=== PATIENT | female | born 1970 | race Caucasian/White ===

== ENCOUNTER 2016-09-07 21:26 | Emergency (ER) | payer BC ==
[~2016-09-07] VITALS: Ht 172.7 cm; Wt 79.8 kg
[~2016-09-07 21:26] MED LIST changes: -ASPI81TA28 PO; -CETI10TA84 PO; -CHOLCAP5 PO; -CYAN1DRO PO; -IBUP-103 PO
[2016-09-07 21:34] VITALS: TEMP 36.5; Ht 172.7 cm; Wt 79.8 kg
[2016-09-07] MEDS ORDERED: OPTIRAY 320 IV PRN (22:00)
[2016-09-07] MEDS ORDERED: IBUP-103 PO (22:02)
[2016-09-07] MEDS ORDERED: CETI10TA84 PO (22:02)
[2016-09-07] MEDS ORDERED: ASPI81TA28 PO (22:02)
[2016-09-07] MEDS ORDERED: CHOLCAP5 PO (22:02)
[2016-09-07] MEDS ORDERED: CYAN1DRO PO (22:05)
--- NOTE | 2016-09-07 22:31 | DIAGNOSTIC IMAGING REPORT ---
CHEST CTA for PULMONARY ARTERIES CT DOSE: 291.25 mGy.cm HISTORY: Chest pain dyspnea TECHNIQUE: Multiaxial CT images of the chest were performed following the intravenous administration of contrast to evaluate the pulmonary arteries. Maximal intensity projection images were also obtained. COMPARISON STUDY: None. FINDINGS: Slight ectasia of the thoracic aorta. No evidence for aneurysm or dissection. Pulmonary arterial structures enhance appropriately. Lungs are considered clear. No significant hilar or mediastinal adenopathy. IMPRESSION: No evidence for pulmonary embolus. Lungs are clear Electronically signed by: Eric Asif M.D. 09/07/2016 10:29 PM Dictated Date/Time: 09/07/2016 10:27 PM
[2016-09-07 23:00] VITALS: BP 108/56; PULSE 71; O2SAT 96
--- NOTE | 2016-09-08 00:50 | EMERGENCY ROOM VISIT NOTE ---
History First contact with patient: 21:37 Chief Complaint: ABNORMAL LABS Stated Complaint: ABNORMAL LABS REFERRD BY History of Present Illness The patient is a 45 year old female who presents to the Emergency Room with complaints of chest burning and discomfort for the past 3 days currently 4 out of 10. Patient was sick this month with flulike illness that is now resolved. Patient went to the family care doctor today and had an elevated d-dimer and was sent in for further evaluation. She states she had a normal EKG. Her mother from a PE. Patient denies dyspnea, fever, chills, productive cough , abdominal pain, leg pain or swelling, back pain, radiating pain, headache, numbness, tingling. No recent travel. She does not smoke. No control. No rash. She has a family history of heart disease. Review of Systems See HPI for pertinent positives & negatives. A total of 10 systems reviewed and were otherwise negative. Past Medical/Surgical History None Social History Smoking Status: Never Smoker Smokeless Tobacco Use: No Alcohol Use: occasionally Drug Use: none Marital Status: Housing Status: lives with family Current/Historical Medications Scheduled Aspirin (Aspirin Ec), 81 MG PO DAILY Cholecalciferol (Vitamin D3), 5,000 INTER.UNIT PO DAILY Cyanocobalamin (Vitamin B12), 1 DOSE PO DAILY Scheduled PRN Cetirizine (Zyrtec), 10 MG PO DAILY PRN for Allergy Symptoms Ibuprofen Tab (Advil), 400-600 MG PO Q6H PRN for Pain or Fever Allergies Coded Allergies: No Known Allergies (Verified Allergy, Unknown, 09/28/04) Physical Exam Vital Signs Date Time Temp Pulse Resp B/P Pulse Ox O2 Delivery O2 Flow Rate FiO2 09/07/16 23:00 71 23 108/56 96 09/07/16 22:31 67 24 107/61 96 Room Air 09/07/16 22:10 76 09/07/16 21:34 36.5 70 16 115/65 97 Room Air Physical Exam VITALS: Vitals are noted on the nurse's note and reviewed by myself. Vital signs stable. GENERAL: Pleasant female, in no acute distress, nondiaphoretic, well-developed well-nourished. SKIN: The skin was without rashes, erythema, edema, or bruising. There is no tenting of the skin. Capillary reflex less than 2 seconds. HEAD: Normocephalic atraumatic. EARS: External auditory canals clear, tympanic membranes pearly edwards without erythema or effusion bilaterally. EYES: Pupils equal round and reactive to light and accommodation. Conjunctivae without injection, sclerae without icterus. Extraocular movements intact. NOSE: Patent, turbinates without inflammation or discharge. MOUTH: Mucous membranes moist. Pharynx without erythema or exudate. Uvula midline. Airway patent. Tongue does not deviate. NECK: Supple without nuchal rigidity. No lymphadenopathy. No thyromegaly. Cervical spine is nontender. No JVD. HEART: Regular rate and rhythm without murmurs gallops or rubs. Chest nontender to palpation LUNGS: Clear to auscultation bilaterally without wheezes, rales or rhonchi. No dullness to percussion. No retractions or accessory muscle use. ABDOMEN: Positive bowel sounds x 4. Normal tympanic percussion. Soft, nontender, without masses or organomegaly. Carlisle sign negative. No guarding or rebound tenderness. MUSCULOSKELETAL: No muscle atrophy, erythema, or edema noted. NEURO: Patient was alert and oriented to person place and time. Normal sensation to light and sharp touch. No focal neurological deficits. Medical Decision & Procedures Laboratory Results Test 09/07/16 22:00 Troponin I < 0.015 ng/ml (0-0.045) ED Course Prior records/ancillary studies reviewed. Triage Nursing notes reviewed. Additional history obtained from family. The patient's history was concerning for chest pain. Differential diagnosis: Etiologies such as cardiac ischemia, aortic dissection, pulmonary embolism, pneumonia, pneumothorax, musculoskeletal, infections, pericarditis, myocarditis , esophageal rupture, gastrointestinal, as well as others were entertained. Physical examination: As above. ER treatment provided: Patient was observed On reassessment the patient felt better. Diagnostic interpretation by me: The electrocardiogram was negative for pathologic change. Normal sinus, normal intervals, no acute ST-T wave changes. Impression normal sinus rhythm interpreted by myself The labs revealed 2 troponins 6 hours apart. Patient had blood work done outpatient today and had a creatinine 0.68 euthyroid and an elevated d-dimer Imaging studies: CHEST CTA for PULMONARY ARTERIES CT DOSE: 291.25 mGy.cm HISTORY: Chest pain dyspnea TECHNIQUE: Multiaxial CT images of the chest were performed following the intravenous administration of contrast to evaluate the pulmonary arteries. Maximal intensity projection images were also obtained. COMPARISON STUDY: None. FINDINGS: Slight ectasia of the thoracic aorta. No evidence for aneurysm or dissection. Pulmonary arterial structures enhance appropriately. Lungs are considered clear. No significant hilar or mediastinal adenopathy. IMPRESSION: No evidence for pulmonary embolus. Lungs are clear Electronically signed by: Eric Asif M.D. Exam and history seem consistent with chest pain that is unlikely to be cardiac in etiology. Symptoms have been ongoing for 3 days. She saw the family care doctor and was sent in for elevated d-dimer. CTA was negative. Repeat troponin was negative which was greater than 6 hours apart. Normal EKG. She is advised to rest, stay well-hydrated and to follow-up family care in a few days or here in the ER sooner for chest pain, difficulty breathing, worsening signs or symptoms or as needed. By the evaluation outlined above emergent etiologies such as cardiac ischemia, aortic dissection, pulmonary embolism, pneumonia, pneumothorax, infections, pericarditis, myocarditis, gastrointestinal, as well as others were deemed relatively unlikely. The pt informed about the findings as listed above. All questions were answered and pleased with the treatment. Return instructions were outlined and the patient was discharged in stable condition. Referral: The patient was referred back to primary care physician for follow-up in 2 to 3 days for a recheck of the current condition. Case reviewed with my attending Medical Decision As above Impression Primary Impression: Precordial chest pain Departure Information Dispostion Home / Self-Care Condition GOOD Referrals Tahir Manzo M.D. (PCP) Patient Instructions My [facility] Additional Instructions Ibuprofen(Motrin, Advil) may be used for fever or pain. Use 600mg every six hours as needed. Take with food. Avoid using more than 2400mg in a 24 hour period. Do not use 2400mg per day for more than three consecutive days without physician direction. Prolonged inappropriate use can lead to stomach upset or ulcers. (AND/OR) Acetaminophen(Tylenol) may be used for fever or pain. Use 1000mg every six hours as needed. Avoid using more than 3000mg in a 24 hour period. Rest and drink plenty of fluids as tolerated. Continue current medications. Avoid strenuous activities and anything that worsens your pain. Resume normal activities once your symptoms resolve. Return to the ER immediately for worsening or persistent chest pain, abdominal pain, vomiting, fevers, chest pains, difficulty breathing, worsening of your condition, or as needed. Follow up with your primary physician in 2-3 days for a recheck of your current condition.
== END 2016-09-07 23:01 | disposition home or self-care (01) ==
LOC: C.EDB 21:28
DX: R07.2 Precordial pain (principal); Z82.49 Family history of ischemic heart disease and other diseases of the circulatory system; Z79.82 Long term (current) use of aspirin

== ENCOUNTER → 2016-09-07 | Outpatient (CLI) | payer BC ==
[~2016-09-07] MED LIST: ASPI81TA28 PO; CETI10TA84 PO; CHOLCAP5 PO; CYAN1DRO PO; FLUO10CA48 PO; IBUP-103 PO
[2016-09-07 20:13] LABS: BASO % 0.2 %; BASO ABS # 0.01 K/uL (0-0.2); EOS % 0.6 %; HEMATOCRIT 36.5 % (37-47); IG% 0.2 %; LYMPH % 32.4 %; MEAN CELL VOLUME 87.3 fL (80-100); MEAN CORPUSCULAR HEMOGLOBIN 29.4 pg (25-34); MEAN PLATELET VOLUME 9.1 fL (7.4-10.4); MONO % 8.2 %; NEUT % 58.4 %; PLATELET COUNT 303 K/uL (130-400); RED BLOOD COUNT 4.18 M/uL (4.2-5.4); WHITE BLOOD COUNT 6.49 K/uL (4.8-10.8)
[2016-09-07 20:23] LABS: COMPLETE YES; MEAN CORPUSCULAR HGB CONC 33.7 g/dl (32-36)
[2016-09-07 20:47] LABS: ALKALINE PHOSPHATASE 52 U/L (45-117); ALT/SGPT 18 U/L (12-78); AST/SGOT 16 U/L (15-37); BLOOD UREA NITROGEN 13 mg/dl (7-18); BUN/CREATININE RATIO 19.4 (10-20); CALCIUM 9.7 mg/dl (8.5-10.1); CARBON DIOXIDE 25 mmol/L (21-32); CHLORIDE 106 mmol/L (98-107); CREATININE 0.68 mg/dl (0.60-1.20); GLUCOSE 87 mg/dl (70-99); POTASSIUM 3.9 mmol/L (3.5-5.1); SODIUM 141 mmol/L (136-145)
== END | disposition home or self-care (01) ==
LOC: C.LAB 19:58
PROVIDERS: ATTEND Family Medicine
DX: R07.89 Other chest pain (principal); R53.83 Other fatigue